=== PATIENT | female | born 1960 | race Caucasian/White ===

== ENCOUNTER 2017-07-05 13:44 | Emergency (ER) | payer SELFPAY ==
[2017-07-05 13:53] VITALS: BMI 32.8
--- NOTE | 2017-07-05 14:39 | PDOC ---
History of Present Illness - General Chief Complaint: Chest Pain Stated Complaint: CHEST PAIN Time Seen by Provider: 07/05/17 14:38 - History of Present Illness Initial Comments: 07/05/17 14:47 Ms. Hussein is a 57 yo female with no PMH who presents c/o a 5 day history of sternal pain radiating to her back with subjective fever, chills, body aches, and dizzy feeling. She says her nose has been running a lot lately and that she has experienced nausea and vomiting after eating over this time period as well that consisted of the food she has eaten. The patient denies shortness of breath and headache. Denies diarrhea and constipation. Denies dysuria, frequency, urgency and hematuria. Allergies: NKDA 07/05/17 18:20 Past History - Past Medical History Allergies/Adverse Reactions: Allergies Allergy/AdvReac Type Severity Reaction Status Date / Time No Known Allergies Allergy Verified 07/05/17 13:48 Home Medications: Ambulatory Orders NK [No Known Home Medication] 07/05/17 COPD: No DVT: No Dementia: No - Immunization History Immunization Up to Date: Yes - Suicide/Smoking/Psychosocial Hx Smoking History: Never smoked Have you smoked in the past 12 months: No Information on smoking cessation initiated: No Hx Alcohol Use: No Drug/Substance Use Hx: No Substance Use Type: None Review of Systems - Review of Systems Comments:: 07/05/17 14:59 GENERAL/CONSTITUTIONAL: +Fever/ chills as above. No weakness. HEAD, EYES, EARS, NOSE AND THROAT: No change in vision. No ear pain or discharge. No sore throat. CARDIOVASCULAR: +Pain to sternum that goes to back. RESPIRATORY: No cough, wheezing, or hemoptysis. GASTROINTESTINAL: +Nausea with vomiting after meals, no diarrhea or constipation. GENITOURINARY: No dysuria, frequency, or change in urination. MUSCULOSKELETAL: +generalized body aches SKIN: No rash NEUROLOGIC: No headache, vertigo, loss of consciousness, or change in strength/ sensation. ENDOCRINE: No increased thirst. No abnormal weight change HEMATOLOGIC/LYMPHATIC: No anemia, easy bleeding, or history of blood clots. ALLERGIC/IMMUNOLOGIC: No hives or skin allergy. *Physical Exam - Vital Signs Last Vital Signs Temp Pulse Resp BP Pulse Ox 98.7 F 66 16 155/85 96 07/05/17 13:48 11/26/17 13:48 07/05/17 13:48 07/05/17 13:48 07/05/17 13:48 - Physical Exam Comments: 07/05/17 15:00 GENERAL: Awake, alert, and fully oriented, in no acute distress HEAD: No signs of trauma, normocephalic, atraumatic EYES: PERRLA, EOMI, sclera anicteric, conjunctiva clear ENT: Auricles normal inspection, hearing grossly normal, nares patent, oropharynx clear without exudates. Moist mucosa NECK: Normal ROM, supple, no lymphadenopathy, JVD, or masses LUNGS: No distress, speaks full sentences, clear to auscultation bilaterally HEART: +Reproducible chest pain with sternal palpation. Pain with palpation in same location on back. Regular rate and rhythm, normal S1 and S2, no murmurs, rubs or gallops, peripheral pulses normal and equal bilaterally. ABDOMEN: +Mild tenderness to RLQ. Soft, normoactive bowel sounds. No guarding, no rebound. No masses EXTREMITIES: Normal inspection, Normal range of motion, no edema. No clubbing or cyanosis. NEUROLOGICAL: Cranial nerves II through XII grossly intact. Normal speech, normal gait, no focal sensorimotor deficits SKIN: Warm, Dry, normal turgor, no rashes or lesions noted. 07/05/17 15:01 ED Treatment Course - LABORATORY CBC & Chemistry Diagram: 07/05/17 15:07 07/05/17 15:06 Medical Decision Making - Medical Decision Making 07/05/17 15:02 Ms. Hussein is a well appearing 57 yo female resting comfortably with symptoms consistent with viral illness. No concern for aortic dissection with patient's well appearing nature and reproducible nature of pain. Patient has no risk factors such as connective tissue disease or advanced age. Will order adult labs as well as flu swab and evaluate heart status with EKG/troponin. 07/05/17 17:16 Patient negative for flu. Reports resolution of RLQ pain with loosening of tight jeans. Will d/c to home with symptomatic care with instructions to follow- up as needed. 07/05/17 18:20 Patient receiving nebulizer as txt for lung tightness. GI cocktail ordered as well for possible Reflux. 07/05/17 19:00 Ms. Hussein is feeling better and would like to go home. Will d/c with instructions to take pepcid and maalox as needed at home and f/u with GI. *DC/Admit/Observation/Transfer Diagnosis at time of Disposition: GERD (gastroesophageal reflux disease) Qualifiers: Esophagitis presence: esophagitis presence not specified Qualified Code(s): K21.9 - Gastro-esophageal reflux disease without esophagitis - Referrals Referrals: Charissa Nowak MD [Staff Physician] - - Patient Instructions Printed Discharge Instructions: DI for Gastroesophageal Reflux Disease (GERD) Additional Instructions: You can take pepcid and maalox over the counter as needed for future reflux. Please follow-up with Gastroenterology for further evaluation. Return if you feel any belly pain, fever, or other concerning symptoms. - Post Discharge Activity
--- NOTE | 2017-07-05 14:53 | PDOC ---
Attending Attestation - HPI HPI: 07/05/17 15:50 The patient is a 57 year old female with no significant past medical history who presents to the ED with complaints of chest pain for 5 days. The patient reports midsternal chest pain radiating to her back with associated diaphoresis , generalized body aches, slight dizziness, and rhinorrhea. She also reports worsening chest pain, nausea and an episode of vomiting secondary to eating food. Denies fever or chills. Denies shortness of breath. Denies palpitations. Denies abdominal pain or diarrhea. Denies any other symptoms. ROS: A complete review of 10 out of 10 review of systems is taken and is negative apart from what is previously mentioned below and in the HPI. - Physicial Exam PE: 07/05/17 15:51 Vitals: Triage Vital signs reviewed General Appearance: no acute distress, well nourished well developed Head: Atraumatic Neck: Supple; No Nucal rigidity Chest Wall: + reproducible chest wall tenderness Abdomen: + Mild right sided abdominal discomfort. Soft, nondistended, normal bowel sounds. Extremities: Full range of motion to all extremities, no cyanosis, clubbing, or edema Skin: Warm and dry, no rashes or lesions, no rash, no petechiae Neuro: AOX3; Cranial Nerves 2-12 grossly intact, Strength intact to all extremities, Sensation intact to all extremities Psych: Normal mood, normal affect - Medical Decision Making 07/05/17 15:51 Documentation prepared by Marita Harding, acting as expert medical writer for Denis Copeland MD 07/05/17 18:19 Patient no longer having left quadrant pain. <Marita Harding - Last Filed: 07/05/17 19:01> - Resident Resident Name: Marcelino Charles - ED Attending Attestation I have performed the following: I have examined & evaluated the patient, The case was reviewed & discussed with the resident, I agree w/resident's findings & plan, Exceptions are as noted - Medical Decision Making Nonischemic EKG troponin negative history and examination most consistent with reflux status post GI cocktail patient feels much better heart score 1 Patient provided with GI follow-up we'll discharge her [facility] Family bedside we will return to the emergency department for any severe worsening symptoms or for any concerns. 07/05/17 19:07 <Denis Copeland - Last Filed: 07/05/17 19:07>
[2017-07-05 15:29] LABS: BASOPHIL 0.5 % (0-2.0); EOSINOPHIL 1.9 % (0-4.5); MCH 30.7 pg (25.7-33.7); MCHC 33.9 g/dl (32.0-36.0); MEAN CELL VOLUME 90.6 fl (80-96); MEAN PLT VOLUME 10.4 fl (7.5-11.1); NEUTROPHILS 71.5 % (42.8-82.8); PLATELET COUNT 235 K/MM3 (134-434); RDW 13.8 % (11.6-15.6)
[2017-07-05 16:43] LABS: ALBUMIN 3.5 g/dl (3.4-5.0); ANION GAP 6 (8-16); BILIRUBIN,TOTAL 0.2 mg/dL (0.2-1.0); CALCIUM 8.9 mg/dL (8.5-10.1); CO2 29 mmol/L (21-32); CREATININE 1.2 mg/dL (0.55-1.02); GLUCOSE,RANDOM 93 mg/dL (74-106); SGOT/AST 32 U/L (15-37); SGPT/ALT 71 U/L (12-78); TOT PROT 7.3 g/dl (6.4-8.2)
[2017-07-05 16:45] LABS: ALK PHOS 70 U/L (45-117); TROPONIN I < 0.02 ng/ml (0.00-0.05)
[2017-07-05] MEDS ORDERED: ALBUTEROL SO4 2.5/IPRATROPIUM 0.5 INH SOL 3 ML VIAL.NEB. NEB ONE ×3 (18:05→18:28)
[2017-07-05] MEDS ORDERED: LIDOCAINE VISCOUS 2% ORAL/TOP 20 ML UNIT-DOSE CUP MM ONE (18:19)
[2017-07-05] MEDS ORDERED: MAG HYDROX/AL HYDROX/SIMETH 30 ML UNIT-DOSE CUP PO ONE (18:19)
[2017-07-05] MEDS ORDERED: MAG HYDROX/AL HYDROX/SIMETH 30 ML UNIT-DOSE CUP ONE (18:28)
[2017-07-05] MEDS ORDERED: LIDOCAINE VISCOUS 2% ORAL/TOP 20 ML UNIT-DOSE CUP ONE (18:28)
[2017-07-05 18:50] VITALS: BP 150/80; PULSE 70; TEMP 98
--- NOTE | 2017-07-16 10:12 | EKG ---
Test Reason : Blood Pressure : / mmHG Vent. Rate : 063 BPM Atrial Rate : 063 BPM P-R Int : 132 ms QRS Dur : 082 ms QT Int : 388 ms P-R-T Axes : 061 046 042 degrees QTc Int : 397 ms NORMAL SINUS RHYTHM NORMAL ECG NO PREVIOUS ECGS AVAILABLE Confirmed by MAIKOL JOHNSON MD ([id number]) on 07/06/2017 2:12:56 PM Also confirmed by MAIKOL JOHNSON MD ([id number]), clinical editor JACOB REA ([id number]) on 07/16/2017 10:12:14 AM Referred By: Confirmed By:MAIKOL JOHNSON MD
== END 2017-07-05 19:08 | disposition home or self-care (01) ==
LOC: JER 13:44
PROC: 3E0F7GC Introduction of Other Therapeutic Substance into Respiratory Tract, Via Natural or Artificial Opening (ICD-10-PCS; principal; 2017-07-05)
PROC: 3E0F7GC Introduction of Other Therapeutic Substance into Respiratory Tract, Via Natural or Artificial Opening (ICD-10-PCS; 2017-07-05)
DX: K21.9 Gastro-esophageal reflux disease without esophagitis (principal)
CPT/HCPCS: 36415; 71010-TC; 80053; 84484; 85025; 87804; 93005; 93010; 99283-25

== ENCOUNTER 2021-10-30 12:00 | Emergency (ER) | payer SELFPAY ==
[2021-10-30 12:23] VITALS: BMI 36.8
[2021-10-30] MEDS ORDERED: FAMOTIDINE 20 MG/50 ML IVPB 20 MG in PREMIX 50 IVPB ONE (12:24)
[2021-10-30] MEDS ORDERED: ONDANSETRON 4 MG/2 ML VIAL IVPB ONE (12:24)
[2021-10-30] MEDS ORDERED: MAG HYDROX/AL HYDROX/SIMETH -MYLANTA- ORAL SUSPENSION PO ONE (12:24)
[2021-10-30] MEDS ORDERED: KETOROLAC TROMETHAMINE 30 MG/1 ML VIAL IVPUSH ONE (12:24)
[2021-10-30] MEDS ORDERED: ACETAMINOPHEN 1000 MG/100 ML BAG IVPB ONE (12:24)
[2021-10-30] MEDS ORDERED: SODIUM CHLORIDE 0.9% 500 ML INFUS.BAG IV ONE (12:25)
[2021-10-30] MEDS ORDERED: FAMOTIDINE 20 MG/50 ML IVPB 20 MG/50 ML MG IVPB ONE (13:43)
[2021-10-30] MEDS ORDERED: MAG HYDROX/AL HYDROX/SIMETH 30 ML UNIT-DOSE CUP ONE (13:44)
[2021-10-30] MEDS ORDERED: KETOROLAC TROMETHAMINE 30 MG/1 ML VIAL ONE (13:44)
[2021-10-30] MEDS ORDERED: ACETAMINOPHEN INJECTION 100 ML IVPB ONE (13:44)
[2021-10-30 13:52] LABS: ALBUMIN 3.6 g/dl (3.4-5.0); BILIRUBIN,TOTAL 0.4 mg/dl (0.2-1); CALCIUM 9.4 mg/dl (8.5-10); CREATININE 0.8 mg/dl (0.55-1.3)
[2021-10-30] MEDS ORDERED: ONDANSETRON 4 MG/2 ML VIAL ONE (13:59)
[2021-10-30 15:05] LABS: BASO % 0.6 % (0-2.0); EOS % 0.8 % (0-4.5); HEMATOCRIT 36.3 % (32.4-45.2); LYMPH % 23.6 % (8-40); MCH 29.2 pg (25.7-33.7); MEAN CELL VOLUME 88.6 fl (80-96); MEAN PLT VOLUME 10.4 fl (7.5-11.1); MONO % 5.5 % (3.8-10.2); NEUT % 69.5 % (42.8-82.8); PLATELET COUNT 256 10^3/uL (134-434); RBC 4.09 M/mm3 (3.60-5.2); RDW 13.8 % (11.6-15.6); WHITE BLOOD COUNT 6.4 K/mm3 (4.0-10.0)
[2021-10-30 15:41] VITALS: BP 150/64; PULSE 58; TEMP 98.4
== END 2021-10-30 16:03 | disposition home or self-care (01) ==
LOC: FER 12:00
PROC: 3E033GC Introduction of Other Therapeutic Substance into Peripheral Vein, Percutaneous Approach (ICD-10-PCS; principal; 2021-10-30)
DX: R07.89 Other chest pain (principal)
CPT/HCPCS: 36415; 71046-TC-FY; 80053; 81003; 82550; 83690; 84484; 85025; 93005; 99285-25

== ENCOUNTER → 2022-09-04 | Day surgery (SDC) | payer OTHER | END | disposition home or self-care (01) | LOC: FMAMMOTONE 10:02 | PROVIDERS: ATTEND Family Medicine | PROC: 0HBT3ZX Excision of Right Breast, Percutaneous Approach, Diagnostic (ICD-10-PCS; principal; 2022-09-04) | DX: N60.11 Diffuse cystic mastopathy of right breast (principal); N60.31 Fibrosclerosis of right breast; N64.89 Other specified disorders of breast; R92.1 Mammographic calcification found on diagnostic imaging of breast | CPT/HCPCS: 19081; 76098-TC-FY; 87899; 88305-TC; A4648 ==